=== PATIENT | female | born 1990 | race Caucasian/White ===

== ENCOUNTER 2020-10-16 21:33 | Emergency (ER) | payer MEDICAID, SELFPAY ==
[~2020-10-16] VITALS: Ht 165.1 cm; Wt 97.5 kg
[2020-10-16 21:34] VITALS: Ht 165.1 cm; Wt 97.5 kg
[2020-10-17 00:59] LABS: PLATELET COUNT 330 x10^3mcL (130-400); RED CELL DISTRIBUTION WIDTH 12.4 % (11.5-14.5)
[2020-10-17 01:17] LABS: BAND NEUTROPHIL 2 % (0-10); BASOPHIL 0 % (0-2); CALCIUM 8.2 mg/dL (8.5-10.1); CARBON DIOXIDE 27.1 mmol/L (21-32); CHLORIDE SERUM 101 mmol/L (98-107); CREATININE SERUM 0.6 mg/dL (0.6-1.0); GFR1 > 60 mL/min; GLUCOSE SERUM 105 mg/dL (74-106); MONOCYTE 1 % (0-7); POTASSIUM SERUM 3.9 mmol/L (3.5-5.1); SEGMENTED NEUTROPHILS 84 % (37-75); SODIUM SERUM 137 mmol/L (136-145)
[2020-10-17 01:19] LABS: PLATELET MORPHOLOGY PLATELETS NORMAL; rbc morphology (normal/abnorm) NORMAL (NORMAL)
[2020-10-17 01:21] LABS: ALBUMIN 3.7 g/dL (3.4-5.0); ALKALINE PHOSPHATASE 114 U/L (46-116); ALT/SGPT 104 U/L (14-59); AST/SGOT 75 U/L (15-37); BILIRUBIN TOTAL 0.6 mg/dL (0.20-1.00); LIPASE 47 IU/L (73-393)
[2020-10-17 04:23] VITALS: BP 118/73
== END 2020-10-17 04:23 | disposition home or self-care (01) ==
LOC: ED 21:33
PROVIDERS: Emergency Medicine
DX: R11.2 Nausea with vomiting, unspecified (principal); R19.7 Diarrhea, unspecified; R51.9 Headache, unspecified; Z90.49 Acquired absence of other specified parts of digestive tract
CPT/HCPCS: J1200; J1885; J2270; J2405; J3490; J7030